=== PATIENT | female | born 1975 | race Caucasian/White ===

== ENCOUNTER 2017-10-23 23:22 | Emergency (ER) | payer BC ==
[~2017-10-23] VITALS: Ht 167.6 cm; Wt 103.9 kg
[~2017-10-23 23:22] MED LIST: AMBIEN 5 MG TABL5 M1; AZITHROMYCIN 2250 MG; CLONAZEPAM 1 MG1 M1 PO; FIORICET PO; FLEXERIL; FLEXERIL OR; FLEXERIL PO; LEXAPRO; LEXAPRO20 MG; LOPRESSOR50; MOVANTIK25 MG; MS CONTIN15 MG; NORCO 5-325 TA1 EACH PO; OMEPRAZOLE40 MG OR; PERCOCET 10-321 EACH; PHENERGAN 25 MG25 M1 PO; RISPERDAL0.5 MG; TRAMADOL PO; VICODIN 5-5001 EACH; VICODIN 5-5001 EACH PO
[2017-10-23] MEDS ORDERED: OXYCONTIN20 M1 PO (23:35)
[2017-10-23] MEDS ORDERED: SUPREP BOWEL P354 ML PO (23:51)
[2017-10-23] MEDS ORDERED: LEXAPRO20 MG PO (23:51)
[2017-10-23 23:57] VITALS: BP 127/69
== END 2017-10-23 23:59 | disposition home or self-care (01) ==
LOC: M.ERS 23:22
DX: K59.00 Constipation, unspecified (principal); Z88.0 Allergy status to penicillin; Z88.1 Allergy status to other antibiotic agents